=== PATIENT | female | born 1970 | race Caucasian/White ===

== ENCOUNTER → 2020-12-30 | Outpatient (CLI) | payer OTHER ==
[~2020-12-30] MED LIST: ASPIRIN CHEWABL81 MG PO; ELIQUIS2.5 MG PO; HYDROCODON-ACE1 EAC4 PO; HYDROCODONE-AC1 EAC1 PO; HYDROXYZINE HCL25 MG PO; LIPITOR80 MG PO; NEURONTIN300 MG PO; NEURONTIN600 MG PO; NITROSTAT0.4 MG SL; NORVASC2.5 MG PO; NORVASC5 MG PO; PERCOCET 5/325 T1 EA PO; PERCOCET 7.5-31 EACH PO; PRILOSEC OTC20 MG PO; PROPRANOLOL HCL10 MG PO; REQUIP1 MG PO; SINGULAIR10 MG PO; SYNTHROID25 MCG PO; TRICOR145 MG PO; VENTOLIN HFA 66.7 GM INH; VISTARIL25 MG PO; VOLTREN XR 100100 MG PO; WELLBUTRIN SR150 M1 PO; ZOLOFT25 MG PO; ZOLOFT50 MG PO
== END ==
LOC: KOH-I 14:34
DX: Z01.818 Encounter for other preprocedural examination (principal); F17.200 Nicotine dependence, unspecified, uncomplicated
CPT/HCPCS: 93926

== ENCOUNTER → 2021-01-04 | Outpatient (CLI) | payer OTHER ==
[2021-01-04 12:02] LABS: RED BLOOD COUNT 4.44 M/UL (4.00-5.10); WHITE BLOOD COUNT 9.2 K/UL (4.5-11.0)
[2021-01-04 12:22] LABS: BUN/CREATININE RATIO 24 (0-10)
== END ==
LOC: OPSV2 11:00 → EDSTATUS 11:00
PROVIDERS: Podiatrist Foot & Ankle Surgery
DX: Z01.818 Encounter for other preprocedural examination (principal); M19.072 Primary osteoarthritis, left ankle and foot; M79.2 Neuralgia and neuritis, unspecified; R00.1 Bradycardia, unspecified
CPT/HCPCS: 36415; 80048; 82652; 85027; 93005

== ENCOUNTER → 2021-02-17 | Day surgery (SDC) | payer OTHER ==
[~2021-02-17] VITALS: Ht 160 cm; Wt 91.6 kg
[2021-02-17 06:50] LABS: RED BLOOD COUNT 4.67 M/UL (4.00-5.10)
[2021-02-17 07:11] LABS: BUN/CREATININE RATIO 21 (0-10)
== END | disposition home or self-care (01) ==
LOC: OR 01-15 07:45
PROVIDERS: Podiatrist Foot & Ankle Surgery
DX: M19.072 Primary osteoarthritis, left ankle and foot (principal); M72.2 Plantar fascial fibromatosis; M21.612 Bunion of left foot; I25.10 Atherosclerotic heart disease of native coronary artery without angina pectoris; I10 Essential (primary) hypertension; G47.30 Sleep apnea, unspecified; M19.90 Unspecified osteoarthritis, unspecified site; E03.9 Hypothyroidism, unspecified; M79.7 Fibromyalgia; N20.0 Calculus of kidney; F41.8 Other specified anxiety disorders
CPT/HCPCS: 36415; 73610; 73630; 76000; 80048; 85027; C1713; C1762; C1769; J0171; J0690; J1100; J1885; J2001; J2250; J2405; J2704; J2710; J2795; J3010; J3370; J7120; Q4133

== ENCOUNTER → 2021-02-25 | Outpatient (CLI) | payer OTHER | LOC: KOH-I 13:36 | DX: M21.612 Bunion of left foot (principal); M79.672 Pain in left foot; Z47.89 Encounter for other orthopedic aftercare | CPT/HCPCS: 73620 ==

== ENCOUNTER → 2021-03-11 | Outpatient (CLI) | payer OTHER | LOC: KOH-I 09:10 | DX: M79.672 Pain in left foot (principal) | CPT/HCPCS: 73630 ==

== ENCOUNTER → 2021-12-27 | Outpatient (CLI) | payer OTHER | LOC: KOH-I 10:08 | DX: M25.572 Pain in left ankle and joints of left foot (principal); M77.32 Calcaneal spur, left foot | CPT/HCPCS: 73610; 73630 ==